=== PATIENT | female | born 1950 | race Caucasian/White ===

== ENCOUNTER 2018-05-12 13:35 | Emergency (ER) | payer OTHER ==
[~2018-05-12] VITALS: Ht 172.7 cm; Wt 104.3 kg
[2018-05-12] MEDS ORDERED: VOLTAREN100 GM TP (13:48)
[2018-05-12] MEDS ORDERED: HYZAAR 100-12.1 EACH PO (13:48)
[2018-05-12] MEDS ORDERED: ZOCOR80 MG PO (13:48)
[2018-05-12] MEDS ORDERED: CLONAZEPAM2 MG PO (13:48)
[2018-05-12] MEDS ORDERED: MEDROLPACK PO (15:59)
[2018-05-12] MEDS ORDERED: NORFLEX100MG PO (15:59)
[2018-05-12] MEDS ORDERED: KETO10TA2 PO (15:59)
[2018-05-12] MEDS ORDERED: NEURONTIN300 MG PO (16:14)
== END 2018-05-12 18:22 | disposition home or self-care (01) ==
LOC: ER 13:35
DX: M54.5 Low back pain (principal)

== ENCOUNTER 2018-06-06 14:32 | Emergency (ER) | payer OTHER ==
[~2018-06-06] VITALS: Ht 172.7 cm; Wt 101.6 kg
[~2018-06-06 14:32] MED LIST: CLONAZEPAM2 MG PO; HYZAAR 100-12.1 EACH PO; KETO10TA2 PO; MEDROLPACK PO; NEURONTIN300 MG PO; NORFLEX100MG PO; VOLTAREN100 GM TP; ZOCOR80 MG PO
[2018-06-06] MEDS ORDERED: MEDROLPACK PO (22:40)
[2018-06-06] MEDS ORDERED: SYMBICORT 16010.2 GM IH (22:40)
[2018-06-06] MEDS ORDERED: TESSALON PERLE100 M1 PO (22:40)
[2018-06-06] MEDS ORDERED: MUCINEX DM ER1 EAC1 PO (22:40)
[2018-06-06] MEDS ORDERED: ZITHROMAX500 MG PO (22:40)
[2018-06-06] MEDS ORDERED: PEPCID AC20 MG PO (22:41)
== END 2018-06-06 22:54 ==
LOC: ER 14:32
DX: J06.9 Acute upper respiratory infection, unspecified (principal); J20.9 Acute bronchitis, unspecified

== ENCOUNTER 2018-11-01 16:54 | Emergency (ER) | payer OTHER ==
[~2018-11-01] VITALS: Ht 172.7 cm; Wt 99.8 kg
[~2018-11-01 16:54] MED LIST changes: +MUCINEX DM ER1 EAC1 PO; +PEPCID AC20 MG PO; +SYMBICORT 16010.2 GM IH; +TESSALON PERLE100 M1 PO; +ZITHROMAX500 MG PO
== END 2018-11-01 22:53 | disposition home or self-care (01) ==
LOC: ER 16:54
DX: N39.0 Urinary tract infection, site not specified (principal); B96.29 Other Escherichia coli [E. coli] as the cause of diseases classified elsewhere

== ENCOUNTER 2018-12-23 11:10 | Emergency (ER) | payer OTHER ==
[~2018-12-23] VITALS: Ht 172.7 cm; Wt 54.4 kg
[2018-12-23] MEDS ORDERED: TRICOR145 MG (11:39)
[2018-12-23] MEDS ORDERED: PERCOCET 5-3251 EACH (11:39)
== END 2018-12-23 19:53 | disposition home or self-care (01) ==
LOC: ER 11:10
DX: M79.604 Pain in right leg (principal); M25.561 Pain in right knee; S80.01XS Contusion of right knee, sequela; W18.09XS Striking against other object with subsequent fall, sequela

== ENCOUNTER 2019-01-04 08:33 | Emergency (ER) | payer OTHER ==
[~2019-01-04] VITALS: Ht 172.7 cm; Wt 99.8 kg
[~2019-01-04 08:33] MED LIST changes: +PERCOCET 5-3251 EACH; +TRICOR145 MG
== END 2019-01-04 09:54 | disposition home or self-care (01) ==
LOC: ER 08:33
DX: M79.604 Pain in right leg (principal)

== ENCOUNTER 2019-01-18 09:04 | Emergency (ER) | payer OTHER ==
[~2019-01-18] VITALS: Ht 162.6 cm; Wt 59.0 kg
[2019-01-18] MEDS ORDERED: WELLBUTRIN XL300 MG PO (09:35)
[2019-01-18] MEDS ORDERED: DICLOFENAC SODI75 MG PO (10:21)
== END 2019-01-18 10:43 | disposition home or self-care (01) ==
LOC: ER 09:04
DX: G89.11 Acute pain due to trauma (principal); M25.561 Pain in right knee

== ENCOUNTER 2019-02-06 13:32 | Emergency (ER) | payer OTHER ==
[~2019-02-06] VITALS: Ht 172.7 cm; Wt 65.8 kg
[~2019-02-06 13:32] MED LIST changes: +DICLOFENAC SODI75 MG PO; +WELLBUTRIN XL300 MG PO
== END 2019-02-06 17:43 | disposition home or self-care (01) ==
LOC: ER 13:32
DX: M25.561 Pain in right knee (principal); S80.01XS Contusion of right knee, sequela; W18.09XS Striking against other object with subsequent fall, sequela

== ENCOUNTER 2019-06-11 14:40 | Emergency (ER) | payer OTHER ==
[~2019-06-11] VITALS: Ht 167.6 cm; Wt 68.0 kg
== END 2019-06-11 17:55 | disposition home or self-care (01) ==
LOC: ER 14:40
DX: M54.5 Low back pain (principal)

== ENCOUNTER 2020-08-07 10:01 | Emergency (ER) | payer OTHER ==
[~2020-08-07] VITALS: Ht 162.6 cm; Wt 96.2 kg
[2020-08-07] MEDS ORDERED: CLONAZEPAM1 MG PO (16:27)
== END 2020-08-07 16:34 | disposition home or self-care (01) ==
LOC: ER 10:01
DX: N39.0 Urinary tract infection, site not specified (principal); B96.29 Other Escherichia coli [E. coli] as the cause of diseases classified elsewhere; R31.29 Other microscopic hematuria; R10.31 Right lower quadrant pain; R10.32 Left lower quadrant pain; F41.8 Other specified anxiety disorders

== ENCOUNTER → 2021-12-06 | Emergency (ER) | payer OTHER ==
[~2021-12-06] MED LIST changes: +CLONAZEPAM1 MG PO
== END | disposition home or self-care (01) ==
LOC: ER 10:18
DX: S89.90XA Unspecified injury of unspecified lower leg, initial encounter (principal); X58.XXXA Exposure to other specified factors, initial encounter; Y93.9 Activity, unspecified; Y92.9 Unspecified place or not applicable; Y99.9 Unspecified external cause status

== ENCOUNTER 2022-02-12 08:06 | Outpatient (CLI) | payer OTHER | END 2022-02-12 08:10 | disposition home or self-care (01) | LOC: SONOGRAMA 08:06 | DX: N18.32 Chronic kidney disease, stage 3b (principal) ==

== ENCOUNTER 2023-02-21 14:02 | Outpatient (CLI) | payer OTHER | END 2023-02-21 14:12 | disposition home or self-care (01) | LOC: MAMO-SONO 14:02 | DX: Z12.31 Encounter for screening mammogram for malignant neoplasm of breast (principal); N60.11 Diffuse cystic mastopathy of right breast; N60.12 Diffuse cystic mastopathy of left breast; I13.10 Hypertensive heart and chronic kidney disease without heart failure, with stage 1 through stage 4 chronic kidney disease, or unspecified chronic kidney disease; E78.2 Mixed hyperlipidemia; E66.9 Obesity, unspecified ==

== ENCOUNTER 2023-02-27 13:04 | Outpatient (CLI) | payer OTHER | END 2023-02-27 15:26 | disposition home or self-care (01) | LOC: TOM 13:04 | DX: G31.84 Mild cognitive impairment of uncertain or unknown etiology (principal); I10 Essential (primary) hypertension ==

== ENCOUNTER 2023-06-11 08:48 | Outpatient (CLI) | payer OTHER | END 2023-06-11 08:59 | disposition home or self-care (01) | LOC: SONOGRAMA 08:48 | PROVIDERS: ATTEND General Practice | DX: N18.31 Chronic kidney disease, stage 3a (principal); R73.01 Impaired fasting glucose; E66.9 Obesity, unspecified; R80.9 Proteinuria, unspecified; M54.9 Dorsalgia, unspecified ==

== ENCOUNTER 2023-08-19 10:27 | Outpatient (CLI) | payer OTHER | END 2023-08-19 10:35 | disposition home or self-care (01) | LOC: RAD 10:27 | DX: M72.2 Plantar fascial fibromatosis (principal) ==

== ENCOUNTER 2024-02-02 08:51 | Outpatient (CLI) | payer OTHER | END 2024-02-02 08:53 | disposition home or self-care (01) | LOC: RAD 08:51 | DX: M72.2 Plantar fascial fibromatosis (principal) ==

== ENCOUNTER → 2024-03-04 | Emergency (ER) | payer OTHER ==
[~2024-03-04] VITALS: Ht 172.7 cm; Wt 93.9 kg
[~2024-03-04] MED LIST changes: +DEXAMETHASONE SODIUM PHOSPHATE 4 MG/ML VIAL IM STA; +MEPERIDINE HCL/PF 25 MG/ML VIAL IM STA
[2024-03-04 10:56] VITALS: BP 123/76; O2SAT 95
== END | disposition home or self-care (01) ==
LOC: ER 10:30
DX: M79.601 Pain in right arm (principal); E11.9 Type 2 diabetes mellitus without complications
CPT/HCPCS: 96372; 99282; J1100; J3490

== ENCOUNTER 2024-04-27 13:25 | Emergency (ER) | payer OTHER ==
[~2024-04-27] VITALS: Ht 170.2 cm; Wt 93.9 kg
[~2024-04-27 13:25] MED LIST changes: -DEXAMETHASONE SODIUM PHOSPHATE 4 MG/ML VIAL IM STA; -MEPERIDINE HCL/PF 25 MG/ML VIAL IM STA
[2024-04-27] MEDS ORDERED: FARXIGA10 MG PO (14:25)
[2024-04-27] MEDS ORDERED: CYMBALTA20 MG PO (14:25)
[2024-04-27] MEDS ORDERED: DEXAMETHASONE SODIUM PHOSPHATE 4 MG/ML VIAL IM STA (15:19)
[2024-04-27] MEDS ORDERED: ORPHENADRINE CITRATE 30 MG/ML AMPUL IM STA (15:20)
[2024-04-27] MEDS ORDERED: AKTOB5 ML OP (16:53)
== END 2024-04-27 19:07 | disposition home or self-care (01) ==
LOC: ER 13:27
DX: H10.12 Acute atopic conjunctivitis, left eye (principal); Z91.013 Allergy to seafood
CPT/HCPCS: 96372; 99282; J1100; J2360

== ENCOUNTER 2024-06-24 10:17 | Emergency (ER) | payer OTHER ==
[~2024-06-24] VITALS: Ht 172.7 cm; Wt 94.3 kg
[~2024-06-24 10:17] MED LIST changes: +AKTOB5 ML OP; +CYMBALTA20 MG PO; +FARXIGA10 MG PO
[2024-06-24] MEDS ORDERED: SIMVASTATIN40 MG PO (10:43)
[2024-06-24 10:44] VITALS: BP 125/78; O2SAT 96
== END 2024-06-24 14:09 | disposition home or self-care (01) ==
LOC: ER 10:20
DX: S89.82XA Other specified injuries of left lower leg, initial encounter (principal); W01.0XXA Fall on same level from slipping, tripping and stumbling without subsequent striking against object, initial encounter; Y93.89 Activity, other specified; Y92.013 Bedroom of single-family (private) house as the place of occurrence of the external cause; Z91.013 Allergy to seafood; E13.9 Other specified diabetes mellitus without complications; N19 Unspecified kidney failure; M17.12 Unilateral primary osteoarthritis, left knee